=== PATIENT | male | born 1995 | race Caucasian/White ===

== ENCOUNTER 2020-01-22 10:54 | Inpatient (IN) | payer SELFPAY ==
--- NOTE | 2020-01-22 11:09 | ER Document Report ---
ED Medical Screen (RME) - General Chief Complaint: Knee Pain Stated Complaint: RIGHT KNEE PAIN, SWELLING Time Seen by Provider: 01/22/20 10:59 TRAVEL OUTSIDE OF THE [place] IN LAST 30 DAYS: No - HPI Notes: 01/22/20 11:08 Patient is a 24-year-old male no significant past medical history who presents complaining of right knee swelling, pain, and difficulty with ambulation over the past couple weeks. Patient states that he is running and lifting and does not recall a specific injury. Patient states that the symptoms were improving until yesterday when it swelled up fairly quickly on him. I have treated and performed a rapid initial assessment of this patient. A comprehensive ED assessment and evaluation of the patient, analysis of test results and completion of medical decision making process will be conducted by additional ED providers. PHYSICAL EXAMINATION: GENERAL: Well-appearing, well-nourished and in no acute distress. A&Ox4. Answers questions appropriately. Right knee: There does appear to be prepatellar swelling/mild erythema and warmth to the area. I am unable to successfully palpate a patellar tendon and I do have concern of patellar tendon rupture. We will obtain x-rays and have him further evaluated. Past Medical History - Social History Chew tobacco use (# tins/day): No Frequency of alcohol use: None Drug Abuse: None Physical Exam - Vital signs Vitals: Temp Pulse Resp BP Pulse Ox 98.1 F 62 16 139/76 H 100 01/22/20 10:59 01/22/20 10:59 01/22/20 10:59 01/22/20 10:59 01/22/20 10:59 Course - Vital Signs Vital signs: Temp Pulse Resp BP Pulse Ox 98.1 F 62 16 139/76 H 100 01/22/20 10:59 01/22/20 10:59 01/22/20 10:59 01/22/20 10:59 01/22/20 10:59
--- NOTE | 2020-01-22 11:52 | RADIOLOGY REPORT (SQ) ---
EXAM DESCRIPTION: KNEE RIGHT 4 VIEWS COMPLETED DATE/TIME: 01/22/2020 11:34 am REASON FOR STUDY: prepatellar swelling, ?patellar tendon rupture COMPARISON: None. NUMBER OF VIEWS: Four views. TECHNIQUE: AP, lateral, and both oblique radiographic images acquired of the right knee. LIMITATIONS: None. FINDINGS: MINERALIZATION: Normal. BONES: No acute fracture or dislocation. No worrisome bone lesions. JOINT: No effusion. SOFT TISSUES: Marked prepatellar soft tissue swelling. OTHER: No other significant finding. IMPRESSION: No acute bony changes. Marked prepatellar soft tissue swelling. No joint effusion. TECHNICAL DOCUMENTATION: JOB ID: [id number] 8 [employer]- All Rights Reserved Reading location - IP/workstation name: [email or web address]
--- NOTE | 2020-01-22 11:59 | ER Document Report ---
ED Extremity Problem, Lower - General Chief Complaint: Knee Pain Stated Complaint: RIGHT KNEE PAIN, SWELLING Time Seen by Provider: 01/22/20 10:59 Mode of Arrival: Ambulatory Information source: Patient Notes: 24-year-old man presents to the emergency department with a complaint of right knee swelling and pain. States he went for a run 1day approximately 2 weeks ago. Afterwards he noted some increasing discomfort in the knee and then swelling which proceeded. He has been elevating and icing the knee and it appeared to be improving he increase his activities and the swelling has worsen ed. He denies any direct trauma, however he does work a job which requires him to be on his needs. He denies fever or injury which may open the need to infection. TRAVEL OUTSIDE OF THE [place] IN LAST 30 DAYS: No - Related Data Allergies/Adverse Reactions: No Known Allergies Allergy (Verified 01/22/20 12:01) Past Medical History - Social History Smoking Status: Current Every Day Smoker Chew tobacco use (# tins/day): No Frequency of alcohol use: None Drug Abuse: None Family History: Reviewed & Not Pertinent Patient has suicidal ideation: No Patient has homicidal ideation: No Review of Systems - Review of Systems Notes: Constitutional: Negative for fever. HENT: Negative for sore throat. Eyes: Negative for visual changes. Cardiovascular: Negative for chest pain. Respiratory: Negative for shortness of breath. Gastrointestinal: Negative for abdominal pain, vomiting or diarrhea. Genitourinary: Negative for dysuria. Musculoskeletal: + Right knee swelling, + right knee pain Skin: Negative for rash. Neurological: Negative for headaches, weakness or numbness. 10 point ROS negative except as marked above and in HPI. Physical Exam - Vital signs Vitals: Temp Pulse Resp BP Pulse Ox 98.1 F 62 16 139/76 H 100 01/22/20 10:59 01/22/20 10:59 01/22/20 10:59 01/22/20 10:59 01/22/20 10:59 - Notes Notes: PHYSICAL EXAMINATION: Physical Exam: General: Well-nourished well-developed 24-year-old male in no acute distress HEENT: NC/AT, pupils equal round and reactive to light, MM moist,nares clear, oropharynx clear, airway patent Neck: supple, no adenopathy, no masses. Good range of motion Lungs: clear, no wheezing, no rales no rhonchi CVS: Regular rate and rhythm no murmur gallop or rub Abdomen: Soft, active, nontender, no masses, no hepatosplenomegaly Ext: Right knee with marked swelling on the anterior knee above the patella, increased warmth, ++ tenderness, decreased range of motion secondary to swelling and pain. Neuro: Alert and responsive, moving all 4 extremities on command, cranial nerves intact, no focal findings Skin: Intact no open lesions, no rash PSYCH: Normal mood, normal affect. Course - Re-evaluation Re-evalutation: 01/22/20 16:14 I discussed the patient with the orthopedist television repairer, Dr. Salgado. WBC count came back at 246,125 markedly elevated but consistent with the thick purulent material that was drawn from the knee. Patient will be admitted to the hospital with vancomycin and Zosyn, coverage for possible MRSA infection. I have explained the plan to the patient and he is in agreement with staying in the hospital for further management. - Vital Signs Vital signs: Temp Pulse Resp BP Pulse Ox 98.2 F 59 L 16 139/76 H 96 01/23/20 17:22 01/23/20 17:22 01/23/20 17:22 01/23/20 17:22 01/23/20 17:22 - Laboratory Result Diagrams: 01/22/20 13:51 01/22/20 13:51 Laboratory results interpreted by me: 01/22/20 13:51 Carbon Dioxide 32 H Total Bilirubin 1.5 H C-Reactive Protein 31.3 H I have reviewed laboratory data and used this information for the treatment decisions regarding the patient. - Diagnostic Test Radiology reviewed: Image reviewed, Reports reviewed - Right knee x-ray: Market soft tissue swelling. Procedures - Joint Aspiration Right Knee Time completed: 13:45 Consent obtained: Yes Joint aspiration pre-procedure: Betadine prep applied, Chloraprep applied Anesthetic type: 1% Lidocaine mL's of anesthetic: 3 Needle size: 18 Amount/type of drainage: 75 cc Number of attempts: 1 Complications: No Notes: A thick mucoid brownish fluid was drained from the right knee. Fluid was sent for cell count and Gram stain, culture, crystals and analysis. Discharge - Discharge Clinical Impression: Infection of right knee Condition: Good Disposition: ADMITTED INPATIENT Admitting Provider: Dr. Salgado Unit Admitted: Surgical Floor
[2020-01-22 14:01] LABS: ABSOLUTE BASOPHILS # (AUTO) 0.1 10^3/uL (0.0-0.2); ABSOLUTE LYMPHOCYTES (AUTO) 1.4 10^3/uL (0.5-4.7); ABSOLUTE MONOCYTES (AUTO) 0.7 10^3/uL (0.1-1.4); ABSOLUTE NEUT (AUTO) 6.6 10^3/uL (1.7-8.2); BASOPHILS % (AUTO) 0.6 % (0-2); EOSINOPHILS % (AUTO) 0.2 % (0-6); HEMATOCRIT 44.3 % (37.9-51.0); HEMOGLOBIN 15.3 g/dL (13.5-17.0); LYMPHOCYTES % (AUTO) 15.7 % (13-45); MEAN CORPUSCULAR HEMOGLOBIN 30.7 pg (27.0-33.4); MEAN CORPUSCULAR HGB CONC 34.5 g/dL (32.0-36.0); MEAN CORPUSCULAR VOLUME 89 fl (80-97); MONOCYTES % (AUTO) 8.4 % (3-13); PLATELET COUNT 342 10^3/uL (150-450); RED BLOOD COUNT 4.98 10^6/uL (4.35-5.55); RED CELL DISTRIBUTION WIDTH 12.4 % (11.5-14.0); SEGMENTED NEUTROPHILS % (AUTO) 75.1 % (42-78); TOTAL CELLS COUNTED % (AUTO) 100 %; WHITE BLOOD COUNT 8.8 10^3/uL (4.0-10.5)
[2020-01-22 14:16] LABS: CALCIUM PYROPHOSPHATE CRYSTALS NONE OBSERVED; MONOSODIUM URATE CRYSTALS INTRACELLULAR; OTHER CRYSTALS NONE OBSERVED
[2020-01-22 14:28] LABS: ALBUMIN 3.9 g/dL (3.5-5.0); ALKALINE PHOSPHATASE 77 U/L (38-126); ANION GAP 7 (5-19); ASPARTATE AMINO TRANSFERASE 21 U/L (17-59); BILIRUBIN,DIRECT 0.1 mg/dL (0.0-0.4); BILIRUBIN,TOTAL 1.5 mg/dL (0.2-1.3); BLOOD UREA NITROGEN 11 mg/dL (7-20); C-REACTIVE PROTEIN 31.3 mg/L (<10.0); CALCIUM 9.3 mg/dL (8.4-10.2); CARBON DIOXIDE 32 mmol/L (22-30); CHLORIDE 100 mmol/L (98-107); GLUCOSE 83 mg/dL (75-110); POTASSIUM 4.7 mmol/L (3.6-5.0); TOTAL PROTEIN 7.1 g/dL (6.3-8.2)
[2020-01-22 15:36] LABS: FLUID TYPE SYNOVIAL
[2020-01-22 15:37] LABS: FLUID APPEARANCE TURBID; FLUID COLOR RED; FLUID SOURCE KNEE; FLUID VISCOSITY HIGHLY VISCOUS
[2020-01-22] MEDS ORDERED: PIPERACILLIN/TAZOBACTAM 3.375 GM VIAL IV ONE (16:29)
[2020-01-22] MEDS ORDERED: VANCOMYCIN HCL INJ 1000 MG VIAL IV ONE (16:29)
[2020-01-22] MEDS ORDERED: ACETAMINOPHEN 325 MG TABLET PO PRN (21:05)
[2020-01-22] MEDS ORDERED: ONDANSETRON 4 MG TAB.RAPDIS PO PRN (21:05)
[2020-01-22] MEDS ORDERED: MORPHINE SULFATE 10 MG/ML INJ IV PRN (21:05)
[2020-01-22] MEDS ORDERED: MAG HYDROX/AL HYDROX/SIMETH SUSP 30 ML UDCUP PO PRN (21:05)
[2020-01-22] MEDS ORDERED: OXYCODONE-ACETAMINOPHEN 5-325 MG TABLET PO PRN (21:05)
[2020-01-22] MEDS ORDERED: NAPROXEN 250 MG TABLET PO PRN (21:12)
[2020-01-22] MEDS: HEPARIN SOD (PORCINE) 5,000 UNIT/ML 1 ML VIAL SUBCUT SCH (23:29)
[2020-01-23] MEDS: HEPARIN SOD (PORCINE) 5,000 UNIT/ML 1 ML VIAL SUBCUT SCH ×2 (07:00→13:15)
--- NOTE | 2020-01-23 08:10 | PDOC H&P ---
History of Present Illness Admission Date/PCP: 01/22/20 16:32 Patient complains of: Right knee pain History of Present Illness: ROBERT ESCALANTE is a 24 year old male who reports a 2-week history of right knee swelling, he denies any history of previous gout. The swelling has been localized to the anterior portion of the knee and while he has been able to continue ambulating he has had more increased difficulty with flexion. He also reports that he was active recently, he had begun running again and feels that this may have contributed some of his right knee pain. He denies any single specific event. Pain is aching and burning in nature localized to the anterior right knee, worse with deep flexion improved with rest. Past Medical History Medical History: None Social History Smoking Status: Current Every Day Smoker Cigarettes Packs Per Day: 0.5 Electronic Cigarette use?: No Number of Years Smokin Frequency of Alcohol Use: Social Hx Recreational Drug Use: No Hx Prescription Drug Abuse: No Family History Parental Family History Reviewed: No Children Family History Reviewed: NA Sibling(s) Family History Reviewed.: NA Medication/Allergy Allergies/Adverse Reactions: No Known Allergies Allergy (Verified 01/22/20 12:01) Review of Systems Review of Systems: Constitutional: Negative for fever. HENT: Negative for sore throat. Eyes: Negative for visual changes. Cardiovascular: Negative for chest pain. Respiratory: Negative for shortness of breath. Gastrointestinal: Negative for abdominal pain, vomiting or diarrhea. Genitourinary: Negative for dysuria. Musculoskeletal: + Right knee swelling, + right knee pain Skin: Negative for rash. Neurological: Negative for headaches, weakness or numbness. 10 point ROS negative except as marked above and in HPI. Physical Exam Vital Signs: Temp Pulse Resp BP Pulse Ox 97.6 F 53 L 16 109/50 L 97 01/23/20 03:49 01/23/20 03:49 01/23/20 03:49 01/23/20 03:49 01/23/20 03:49 Intake & Output 01/22/20 01/23/20 01/24/20 06:59 06:59 06:59 Output Total 0 Balance 0 Weight 68.1 kg Physical Exam: General appearance: PRESENT: no acute distress, cooperative, well-nourished Head exam: PRESENT: atraumatic, normocephalic Eye exam: PRESENT: EOMI Ear exam: PRESENT: normal external ear exam Mouth exam: PRESENT: neck supple Neck exam: ABSENT: tracheal deviation Respiratory exam: PRESENT: symmetrical, unlabored. ABSENT: accessory muscle use, wheezes Pulses: PRESENT: normal radial pulses, normal dorsalis pedis pulse Vascular exam: PRESENT: normal capillary refill GI/Abdominal exam: ABSENT: distended, firm Extremities exam: PRESENT: full ROM of bilateral shoulders, elbows wrists, knees, hips and ankles without pain Musculoskeletal exam: PRESENT: full ROM, normal inspection of all 4 extremities aside from that noted below. Neurological exam: PRESENT: alert, awake, oriented to person, oriented to place, oriented to time Psychiatric exam: PRESENT: appropriate affect. ABSENT: agitated Focused psych exam: ABSENT: catatonic Skin exam: PRESENT: intact. ABSENT: dry All as above aside from that noted in the HPI and the following: Right lower extremity -Pulses 2+ distally -Compartments soft -Sensation grossly intact to L3-4-5 S1 -Motor grossly intact to EHL TA gastroc and quad -No effusion at the right knee joint, there is a prepatellar effusion with erythema and warmth. Band-Aid was removed and prior puncture wound appears to have been directed towards prepatellar bursa rather than intra-articularly. Results Laboratory Results: 01/22/20 13:51 01/22/20 13:51 01/22/20 01/22/20 01/22/20 13:26 13:26 13:51 WBC RBC Hgb Hct MCV MCH MCHC RDW Plt Count Seg Neutrophils % Sodium 138.6 Potassium 4.7 Chloride 100 Carbon Dioxide 32 H Anion Gap 7 BUN 11 Creatinine 1.01 Est GFR ( Amer) > 60 Glucose 83 Calcium 9.3 Total Bilirubin 1.5 H AST 21 Alkaline Phosphatase 77 C-Reactive Protein 31.3 H Total Protein 7.1 Albumin 3.9 Fluid Type SYNOVIAL SYNOVIAL Fluid Source KNEE Fluid Color RED Fluid Appearance TURBID Fluid Viscosity HIGHLY VISCOUS Fluid WBC 141790 Fluid RBC [id number] 01/22/20 13:51 WBC 8.8 RBC 4.98 Hgb 15.3 Hct 44.3 MCV 89 MCH 30.7 MCHC 34.5 RDW 12.4 Plt Count 342 Seg Neutrophils % 75.1 Sodium Potassium Chloride Carbon Dioxide Anion Gap BUN Creatinine Est GFR ( Amer) Glucose Calcium Total Bilirubin AST Alkaline Phosphatase C-Reactive Protein Total Protein Albumin Fluid Type Fluid Source Fluid Color Fluid Appearance Fluid Viscosity Fluid WBC Fluid RBC Impressions: Knee X-Ray 01/22/20 11:08 IMPRESSION: No acute bony changes. Marked prepatellar soft tissue swelling. No joint effusion. Assessment & Plan - Diagnosis (1) Idiopathic gout, right knee Is this a current diagnosis for this admission?: Yes Plan: Patient does have monosodium urate crystals on laboratory evaluation. Further labs pending. (2) Prepatellar bursitis of right knee Is this a current diagnosis for this admission?: Yes Plan: At this time it appears that the swelling and pain is all coming from the prepat ellar bursa. There is no effusion about the knee, the patient also reports the ability to ambulate which makes intra-articular infection less likely. -We will follow-up on Gram stain today. If negative for infection then allow the patient to return home on continued antibiotics. -Discussion with the patient today includes instructions to return to the office if there is any recurrence. He is in understanding and all questions were answered. -He understands that with a negative Gram stain he may still have an infection and need to be followed up. However given a prepatellar bursa infection is not as critical as a intra-articular knee infection he may be able to be treated as an outpatient on oral antibiotics rather than inpatient IV antibiotics with consideration of acute surgery.
[2020-01-23] MEDS ORDERED: LIDOCAINE 2% INJ (20 MG/ML) 20 ML MDV INJ PRN (09:17)
[2020-01-23] MEDS ORDERED: DOCUSATE SODIUM 100 MG CAPSULE PO SCH (10:00)
--- NOTE | 2020-01-23 11:43 | Operative Report ---
Operative Report DATE OF SURGERY: 01/23/20 PREOPERATIVE DIAGNOSIS: Right prepatellar bursal effusion POSTOPERATIVE DIAGNOSIS: Right prepatellar bursal effusion OPERATION: Right knee bursal aspiration SURGEON: JALEN FARMER JR ANESTHESIA: Local COMPLICATIONS: None ESTIMATED BLOOD LOSS: None PROCEDURE: A discussion was had with the patient regarding risks and benefits of treatment options. After verbal consent was obtained the site was prepped in standard sterile fashion with alcohol preps. Following this, 5 cc of local anesthetic was applied to the right knee over the softness aspect of the prepatellar bursa. We then introduced after adequate analgesia, an 18-gauge spinal needle that withdrew cloudy sanguinous fluid of approximately 30. Following this we flushed the knee with sterile saline, copiously. We then withdrew all fluid and placed a sterile dressing.
--- NOTE | 2020-01-23 11:44 | Progress Note ---
Provider Note Provider Note: I attempted a right knee prepatellar aspiration hoping to evacuate any remaining fluid. Unfortunately there is a fair amount of soft tissue swelling and which accounts for what appears to be a fluid volume. Cultures are currently pending but growing gram-positive cocci. We will plan on keeping the patient here t onight on IV antibiotics. Following this procedure if he has considerable improvement tomorrow we will consider allowing him to go home on home p.o. antibiotics however there is a high likelihood that he will need operative intervention for evacuation of the septic prepatellar bursa.
[2020-01-23] MEDS ORDERED: VANCOMYCIN HCL 0 MG in DEXTROSE 5%-WATER 250 ML IV NR (16:45)
[2020-01-23] MEDS ORDERED: TRAMADOL HCL 50 MG TABLET PO PRN (17:04)
[2020-01-23] MEDS ORDERED: NICOTINE 14 MG/24 HR PATCH.TD24 TD ONE (17:15)
--- NOTE | 2020-01-23 17:21 | PDOC DISCHARGE SUMMARY ---
Impression - Admit/DC Date/PCP Admission Date/Primary Care Provider: 01/22/20 16:32 Discharge Date: 01/23/20 - Discharge Diagnosis (1) Idiopathic gout, right knee Is this a current diagnosis for this admission?: Yes (2) Prepatellar bursitis of right knee Is this a current diagnosis for this admission?: Yes - Additional Information Resuscitation Status: Full Code Discharge Diet: As Tolerated Discharge Activity: Activity As Tolerated Referrals: [facility] [Outside] Prescriptions: Sulfamethoxazole/Trimethoprim [Septra-Ds 800-160 mg Tablet] 1 tab PO BID 10 Days #20 tablet Tramadol HCl [Ultram 50 mg Tablet] 50 mg PO Q6HP PRN #25 tablet PRN Reason: Home Medications: Acetaminophen [Tylenol 325 mg Tablet] 650 mg PO Q4HP PRN tablet 01/23/20 Naproxen [Naprosyn 250 mg Tablet] 250 mg PO BIDP PRN tablet 01/23/20 Nicotine [Nicoderm 14 mg/24 Hr Transdermal Patch] 1 each TD DAILY patch.td24 01/23/20 Sulfamethoxazole/Trimethoprim [Septra-Ds 800-160 mg Tablet] 1 tab PO BID 10 Days #20 tablet 01/23/20 Tramadol HCl [Ultram 50 mg Tablet] 50 mg PO Q6HP PRN #25 tablet 01/23/20 History of Present Illiness History of Present Illness: ROBERT ESCALANTE is a 24 year old male who reports a 2-week history of right knee swelling, he denies any history of previous gout. The swelling has been localized to the anterior portion of the knee and while he has been able to continue ambulating he has had more increased difficulty with flexion. He also reports that he was active recently, he had begun running again and feels that this may have contributed some of his right knee pain. He denies any single specific event. Pain is aching and burning in nature localized to the anterior right knee, worse with deep flexion improved with rest. Hospital Course Hospital Course: The patient was admitted. While he did report some improvement over his 1 day stay, it was not complete. He had a recurrent effusion that I re-aspirated and flushed at the bedside. I explained that this may provide some interval improvement but my plan was to proceed with surgical intervention depending on his re-evaluation tomorrow. His cultures were growing gram positive cocci in clusters and while he had positive monosodium urate crystals from the prior aspiration, his gout attack was compounded by a bacterial infection. However this was all localized to the bursa and not the intra-articular joint. I encouraged continued stay for potential surgical intervention and final cultures for definitive antibiotic planning. However, he refused to consider surgery at this time. In addition, he strongly requested discharge home with PO antibiotics. Given that this is a localized soft tissue infection, I agreed to provide him with a PO script, but explained that this is against my recommendation and that he should return [facility] with any worsening symptoms or systemic symptoms. I explained that bursal infections can be hard to treat and commonly do not respond to antibiotics alone. He demonstrated understanding but was adamant for discharge and was willing to accept the high risk of failure of treatment. He was discharged home in stable condition. Physical Exam Vital Signs: Temp Pulse Resp BP Pulse Ox 98.2 F 59 L 16 125/57 L 96 01/23/20 12:27 01/23/20 12:27 01/23/20 12:27 01/23/20 12:27 01/23/20 12:27 Intake & Output 01/22/20 01/23/20 01/24/20 06:59 06:59 06:59 Intake Total 560 Output Total 0 Balance 0 560 Weight 68.1 kg Results Laboratory Results: WBC 8.8 10^3/uL (4.0-10.5) 01/22/20 13:51 RBC 4.98 10^6/uL (4.35-5.55) 01/22/20 13:51 Hgb 15.3 g/dL (13.5-17.0) 01/22/20 13:51 Hct 44.3 % (37.9-51.0) 01/22/20 13:51 MCV 89 fl (80-97) 01/22/20 13:51 MCH 30.7 pg (27.0-33.4) 01/22/20 13:51 MCHC 34.5 g/dL (32.0-36.0) 01/22/20 13:51 RDW 12.4 % (11.5-14.0) 01/22/20 13:51 Plt Count 342 10^3/uL (150-450) 01/22/20 13:51 Lymph % (Auto) 15.7 % (13-45) 01/22/20 13:51 Park % (Auto) 8.4 % (3-13) 01/22/20 13:51 Eos % (Auto) 0.2 % (0-6) 01/22/20 13:51 Baso % (Auto) 0.6 % (0-2) 01/22/20 13:51 Absolute Neuts (auto) 6.6 10^3/uL (1.7-8.2) 01/22/20 13:51 Absolute Lymphs (auto) 1.4 10^3/uL (0.5-4.7) 01/22/20 13:51 Absolute Monos (auto) 0.7 10^3/uL (0.1-1.4) 01/22/20 13:51 Absolute Eos (auto) 0.0 10^3/uL (0.0-0.6) 01/22/20 13:51 Absolute Basos (auto) 0.1 10^3/uL (0.0-0.2) 01/22/20 13:51 Seg Neutrophils % 75.1 % (42-78) 01/22/20 13:51 Sodium 138.6 mmol/L (137-145) 01/22/20 13:51 Potassium 4.7 mmol/L (3.6-5.0) 01/22/20 13:51 Chloride 100 mmol/L (98-107) 01/22/20 13:51 Carbon Dioxide 32 mmol/L (22-30) H 01/22/20 13:51 Anion Gap 7 (5-19) 01/22/20 13:51 BUN 11 mg/dL (7-20) 01/22/20 13:51 Creatinine 1.01 mg/dL (0.52-1.25) 01/22/20 13:51 Est GFR ( Amer) > 60 (>60) 01/22/20 13:51 Est GFR (MDRD) Non-Af > 60 (>60) 01/22/20 13:51 Glucose 83 mg/dL (75-110) 01/22/20 13:51 Calcium 9.3 mg/dL (8.4-10.2) 01/22/20 13:51 Total Bilirubin 1.5 mg/dL (0.2-1.3) H 01/22/20 13:51 Direct Bilirubin 0.1 mg/dL (0.0-0.4) 01/22/20 13:51 Neonat Total Bilirubin Not Reportable 01/22/20 13:51 Neonat Direct Bilirubin Not Reportable 01/22/20 13:51 Neonat Indirect Bili Not Reportable 01/22/20 13:51 AST 21 U/L (17-59) 01/22/20 13:51 ALT 29 U/L (<50) 01/22/20 13:51 Alkaline Phosphatase 77 U/L (38-126) 01/22/20 13:51 C-Reactive Protein 31.3 mg/L (<10.0) H 01/22/20 13:51 Total Protein 7.1 g/dL (6.3-8.2) 01/22/20 13:51 Albumin 3.9 g/dL (3.5-5.0) 01/22/20 13:51 Fluid Type SYNOVIAL 01/22/20 13:26 Fluid Type SYNOVIAL 01/22/20 13:26 Fluid Source KNEE 01/22/20 13:26 Fluid Color RED 01/22/20 13:26 Fluid Appearance TURBID 01/22/20 13:26 Fluid Viscosity HIGHLY VISCOUS 01/22/20 13:26 Fluid WBC 581090 /uL 01/22/20 13:26 Fluid RBC 228958 /uL 01/22/20 13:26 Fluid Seg Neutrophils 99 % 01/22/20 13:26 Fluid Lymphocytes 0 % 01/22/20 13:26 Fluid Monocytes 1 % 01/22/20 13:26 Fluid Eosinophils 0 % 01/22/20 13:26 Fluid Basophils 0 % 01/22/20 13:26 Fluid Crystals NONE OBSERVED 01/22/20 13:26 Fluid Crystal Source RIGHT KNEE 01/22/20 13:26 Ca Pyrophosphate Cryst NONE OBSERVED 01/22/20 13:26 Synov Monosodium Urate INTRACELLULAR 01/22/20 13:26 Impressions: Knee X-Ray 01/22/20 11:08 IMPRESSION: No acute bony changes. Marked prepatellar soft tissue swelling. No joint effusion. Stroke Is this a Stroke Patient?: No Acute Heart Failure - Is this a Heart Failure Patient?: No
[2020-01-23 17:23] VITALS: BP 139/76
[2020-01-23] MEDS ORDERED: SULFAMETHOXAZOLE/TRIMETHOPRIM 800-160 MG TABLET PO SCH (18:00)
[2020-01-23] MEDS ORDERED: PIPERACILLIN SODIUM/TAZOBACTAM 3.375 GM in NORMAL SALINE 100 ML IV SCH (18:00)
[2020-01-23] MEDS ORDERED: VANCOMYCIN HCL 1,000 MG in DEXTROSE 5%-WATER 250 ML IV SCH (22:00)
[2020-01-24] MEDS ORDERED: NICOTINE 14 MG/24 HR PATCH.TD24 TD SCH (10:00)
== END 2020-01-23 17:53 | disposition home or self-care (01) | DRG 554 ==
LOC: ER 10:54 → EH 16:32 → 3N 18:45
PROVIDERS: ADMIT Orthopaedic Surgery; ATTEND Orthopaedic Surgery
PROC: 0S9C3ZX Drainage of Right Knee Joint, Percutaneous Approach, Diagnostic (ICD-10-PCS; 2020-01-22)
PROC: 0M9N3ZX Drainage of Right Knee Bursa and Ligament, Percutaneous Approach, Diagnostic (ICD-10-PCS; principal; 2020-01-23)
DX: M10.061 Idiopathic gout, right knee (principal); M25.461 Effusion, right knee; F17.210 Nicotine dependence, cigarettes, uncomplicated; B96.89 Other specified bacterial agents as the cause of diseases classified elsewhere
CPT/HCPCS: 36415; 80053; 85025; 86140; 87040; 87070; 87075; 87077; 87186; 87205; 89050; 89060; 99284; J2543; J3370; J3490